=== PATIENT | female | born 1980 | race Caucasian/White ===

== ENCOUNTER 2016-10-04 14:12 | Emergency (ER) | payer OTHER ==
[~2016-10-04] VITALS: Ht 170.2 cm; Wt 82.8 kg
[~2016-10-04 14:12] MED LIST: AUGMENTIN875 MG PO; Atarax,Vistaril PO; BACTRIM,SEPT1 TABLE1 PO; BUPROPION XL150 MG PO; BUSPAR10 MG PO; BUSPAR15 MG PO; CALAN40 MG PO; CALAN80 MG PO; CALCITRIOL0.25 MCG PO; CEFTIN250 MG PO; CEFTIN500 MG PO; CEPHALEXIN500 MG PO; CRAN-MAX500 MG PO; DELTASONE5 MG PO; DILAUDID2 MG PO; Desyrel PO; EFFEXOR XR150 MG PO; EFFEXOR100 MG PO; EPOGEN,PRO20000 UNIT IV; Effexor XR PO; FOLIC ACID1 MG PO; Flagyl PO; Flonase BOTH NARES; IRON GLUCONATE; IRON325 MG PO; KEFLEX500 MG PO; LIPITOR40 MG PO; LO-DOSE ASPIRIN81 M1 PO; LOPRESSOR12.5 MG PO; LOPRESSOR25 MG PO; Levaquin PO; Lopressor PO; MIRENA52 MG IY; MULTIPLE VITAM1 EACH PO; MULTIVITAMIN1 EAC1 PO; MYCELEX10 MG PO; MYFORTIC PO; MYFORTIC180 MG PO; MYFORTIC360 MG PO; NABI650T PO; Neurontin PO; ONDANSETRON HCL4 MG PO; PERCOCET 5/31 TABLET PO; PREDNISONE5 M2 PO; PREDNISONE5 MG PO; PROGRAF1 MG PO; PROTONIX40 MG PO; PriLOSEC PO; Prograf PO; REGLAN5 MG PO; SODIUM BICARB; Sodium Bicarbonate PO; TRAMADOL HCL50 MG PO; Ultram PO; VANCOMYCIN HCL125 MG PO; Vicodin,Norco 5/325 PO; WELLBUTRIN SR150 MG PO; Wellbutrin SR PO; XANAX0.25 MG PO; Xanax PO; ZOFRAN ODT4 MG PO; ZOFRAN4 MG PO; ZOLOFT100 MG PO; ZOLOFT50 MG PO; predniSONE PO
[2016-10-04 15:05] LABS: ADD MIUA? YES; BILIRUBIN NEGATIVE; BLOOD SMALL; COLOR YELLOW ((YELLOW)); GLUCOSE (STRIP) NEGATIVE; KETONES 5; LEUKOCYTES TRACE; NITRITE NEGATIVE; PROTEIN (STRIP) NEGATIVE; SPECIFIC GRAVITY 1.015 (1.000-1.030); UROBILINOGEN 0.2 MG/DL (0.2-1.0)
[2016-10-04 15:10] LABS: HEMATOCRIT 38.6 % (36.0-46.0); MCH 28.7 PG (29.0-34.0); MCHC 32.1 G/DL (30.0-36.0); MCV 89.4 FL (83-99); MEAN PLAT.VOLUME 9.9 uM^3 (9.5-12.4); PLATELET COUNT 198 K/uL (156-360); RBC DIS.WIDTH-CV 13.3 % (11.8-14.6); RBC DIS.WIDTH-SD 43.7 % (39-53); RED BLOOD COUNT 4.32 M/uL (3.80-5.20); WHITE BLOOD COUNT 11.9 K/uL (4.1-10.2)
[2016-10-04 15:17] LABS: BACTERIA NONE SEEN /HPF; EPITHELIAL CELLS 1+ /HPF; MUCUS NONE SEEN /LPF; RED BLOOD CELLS NONE SEEN /HPF (0-5); UCUL ADDED? NO; WHITE BLOOD CELLS NONE SEEN /HPF (0-5)
[2016-10-04 15:18] LABS: CHLORIDE 110 mEq/L (99-109); POTASSIUM 4.4 mEq/L (3.7-5.4); SODIUM 139 mEq/L (136-147)
[2016-10-04 15:20] LABS: GLUCOSE 98 mg/dL (70-99)
[2016-10-04 15:21] LABS: ANION GAP 10 MEQ/L (2-14)
[2016-10-04 15:22] LABS: TOTAL BILIRUBIN 0.6 mg/dL (0.0-1.0)
[2016-10-04 15:23] LABS: ALKALINE PHOSPHATASE 65 IU/L (3-129)
[2016-10-04 15:24] LABS: GFR ESTIMATE (CALCULATED) 34 mL/min/
[2016-10-04 15:25] LABS: UREA NITROGEN (BUN) 25 mg/dL (9-23)
[2016-10-04] MEDS ORDERED: LORTAB 5-325 M1 EACH PO (19:41)
[2016-10-04] MEDS ORDERED: KEFLEX500 MG PO (19:41)
[2016-10-04] MEDS ORDERED: ZOFRAN ODT4 MG PO (19:41)
[2016-10-04 19:52] VITALS: BP 133/70
[2016-10-11] MEDS ORDERED: BUSPAR10 MG PO (15:25)
[2016-10-11] MEDS ORDERED: MULTIPLE VITAM1 EACH PO (15:26)
[2016-10-11] MEDS ORDERED: ROCALTROL0.25 MCG PO (15:26)
[2016-10-11] MEDS ORDERED: ZANTAC300 MG PO (15:27)
[2016-10-11] MEDS ORDERED: PROGRAF1 MG PO ×2 (15:27)
[2016-10-11] MEDS ORDERED: MYFORTIC PO (15:29)
[2016-10-11] MEDS ORDERED: KEFLEX500 MG PO (15:30)
== END 2016-10-04 19:53 | disposition home or self-care (01) ==
LOC: EME 14:12
PROVIDERS: Nurse Practitioner Family
DX: N12 Tubulo-interstitial nephritis, not specified as acute or chronic (principal); Z94.0 Kidney transplant status; Z87.440 Personal history of urinary (tract) infections; K21.9 Gastro-esophageal reflux disease without esophagitis; I10 Essential (primary) hypertension; Z87.891 Personal history of nicotine dependence
CPT/HCPCS: 74176; 80053; 81003; 83605; 85027; 87086; 99281; 99283; J0696; J2405; J3010; J7030; J7050

== ENCOUNTER 2016-10-13 08:52 | Inpatient (IN) | payer OTHER ==
[~2016-10-13] VITALS: Ht 171.4 cm; Wt 88.7 kg
[~2016-10-13 08:52] MED LIST changes: +LORTAB 5-325 M1 EACH PO; +ROCALTROL0.25 MCG PO; +ZANTAC300 MG PO
[2016-10-13 09:26] VITALS: BP 129/79
[2016-10-13 13:11] VITALS: BP 134/72
[2016-10-13 16:10] VITALS: BP 136/76
[2016-10-13 17:04] LABS: HEMATOCRIT 35.8 % (36.0-46.0); MCH 28.5 PG (29.0-34.0); MEAN PLAT.VOLUME 10.2 uM^3 (9.5-12.4); PLATELET COUNT 345 K/uL (156-360); RBC DIS.WIDTH-CV 13.7 % (11.8-14.6); RBC DIS.WIDTH-SD 46.5 % (39-53); RED BLOOD COUNT 3.89 M/uL (3.80-5.20)
[2016-10-13 17:05] LABS: WHITE BLOOD COUNT 14.3 K/uL (4.1-10.2)
[2016-10-13 17:06] VITALS: BP 150/90
[2016-10-13 17:15] LABS: ANION GAP 6 MEQ/L (2-14); CHLORIDE 111 MEQ/L (99-109); GFR ESTIMATE (CALCULATED) 27 mL/min/; POTASSIUM 4.8 MEQ/L (3.7-5.4); SAMPLE HEMOLYSIS CHECK 0; SAMPLE ICTERIC CHECK 0; SAMPLE LIPEMIA CHECK 0; SODIUM 135 MEQ/L (136-147); UREA NITROGEN (BUN) 27 mg/dL (9-23)
[2016-10-13 17:17] LABS: GLUCOSE 204 mg/dL (70-99)
[2016-10-13 18:30] VITALS: BP 117/73
[2016-10-13 19:01] LABS: HEMATOCRIT 30.4 % (36.0-46.0); MCV 91.6 FL (83-99)
[2016-10-13 20:24] VITALS: BP 138/74
[2016-10-13 21:10] LABS: HEMATOCRIT 28.9 % (36.0-46.0); MCV 95.1 FL (83-99)
[2016-10-14] VITALS (13 sets, daily range): BP systolic 122–145; BP diastolic 67–83
[2016-10-14 06:27] LABS: HEMATOCRIT 23.6 % (36.0-46.0); MCH 29.1 PG (29.0-34.0); MCHC 30.9 G/DL (30.0-36.0); MEAN PLAT.VOLUME 10.2 uM^3 (9.5-12.4); PLATELET COUNT 247 K/uL (156-360); RBC DIS.WIDTH-CV 13.5 % (11.8-14.6); RBC DIS.WIDTH-SD 46.7 % (39-53); WHITE BLOOD COUNT 10.7 K/uL (4.1-10.2)
[2016-10-14 06:38] LABS: RED BLOOD COUNT 2.51 M/uL (3.80-5.20)
[2016-10-14 06:54] LABS: ANION GAP 4 MEQ/L (2-14); CHLORIDE 108 MEQ/L (99-109); GFR ESTIMATE (CALCULATED) 26 mL/min/; GLUCOSE 140 mg/dL (70-99); POTASSIUM 4.6 MEQ/L (3.7-5.4); SAMPLE HEMOLYSIS CHECK 0; SAMPLE ICTERIC CHECK 0; SAMPLE LIPEMIA CHECK 0; SODIUM 134 MEQ/L (136-147); UREA NITROGEN (BUN) 26 mg/dL (9-23)
[2016-10-14 11:57] LABS: HEMATOCRIT 30.4 % (36.0-46.0); MCH 29.4 PG (29.0-34.0); MCHC 33.2 G/DL (30.0-36.0); MCV 88.6 FL (83-99); MEAN PLAT.VOLUME 9.9 uM^3 (9.5-12.4); PLATELET COUNT 182 K/uL (156-360); RBC DIS.WIDTH-SD 45.3 % (39-53); RED BLOOD COUNT 3.43 M/uL (3.80-5.20); WHITE BLOOD COUNT 18.4 K/uL (4.1-10.2)
[2016-10-14 12:05] LABS: CHLORIDE 110 mEq/L (99-109); POTASSIUM 4.7 mEq/L (3.7-5.4); SODIUM 134 mEq/L (136-147)
[2016-10-14 12:06] LABS: GLUCOSE 153 mg/dL (70-99); INTER. NORMALIZED RATIO 1.2; PROTHROMBIN TIME 11.9 (9.2-11.2); PTT 23.3 (25-32)
[2016-10-14 12:08] LABS: ANION GAP 9 MEQ/L (2-14)
[2016-10-14 12:10] LABS: GFR ESTIMATE (CALCULATED) 28 mL/min/
[2016-10-14 12:11] LABS: UREA NITROGEN (BUN) 22 mg/dL (9-23)
[2016-10-14 15:26] LABS: METH RESISTANT S AUREUS PCR NEGATIVE (NEGATIVE)
[2016-10-14 15:30] LABS: PROBE CHECK PASS; SPECIMEN PROCESSING CONTROL PASS
[2016-10-14 19:21] LABS: EOSINOPHIL (%) 0 % (0-5); HEMATOCRIT 26.9 % (36.0-46.0); IMMATURE GRANULOCYTE (%) 1.5 % (0.0-0.7); IMMATURE GRANULOCYTE COUNT 0.2 K/uL; LYMPHOCYTE COUNT 0.7 K/uL (1.0-2.8); MCH 28.8 PG (29.0-34.0); MCHC 33.1 G/DL (30.0-36.0); MCV 87.1 FL (83-99); MEAN PLAT.VOLUME 10.3 uM^3 (9.5-12.4); MONOCYTE (%) 6.7 % (3-12); MONOCYTE COUNT 0.8 K/uL (0-0.8); NEUTROPHIL (%) 85.6 % (45-76); PLATELET COUNT 153 K/uL (156-360); RBC DIS.WIDTH-CV 14.6 % (11.8-14.6); RBC DIS.WIDTH-SD 46.6 % (39-53); RED BLOOD COUNT 3.09 M/uL (3.80-5.20)
[2016-10-14 19:22] LABS: WHITE BLOOD COUNT 11.7 K/uL (4.1-10.2)
[2016-10-14 19:29] LABS: CHLORIDE 109 mEq/L (99-109); SODIUM 136 mEq/L (136-147)
[2016-10-14 19:30] LABS: GLUCOSE 155 mg/dL (70-99)
[2016-10-14 19:32] LABS: ANION GAP 11 MEQ/L (2-14)
[2016-10-14 19:34] LABS: GFR ESTIMATE (CALCULATED) 26 mL/min/
[2016-10-14 19:35] LABS: UREA NITROGEN (BUN) 22 mg/dL (9-23)
[2016-10-15] VITALS (12 sets, daily range): BP systolic 122–150; BP diastolic 65–94
[2016-10-15 01:47] LABS: HEMATOCRIT 27.7 % (36.0-46.0); MCH 29.1 PG (29.0-34.0); MCHC 33.2 G/DL (30.0-36.0); MCV 87.7 FL (83-99); PLATELET COUNT 145 K/uL (156-360); RBC DIS.WIDTH-CV 14.7 % (11.8-14.6); RBC DIS.WIDTH-SD 47.8 % (39-53); RED BLOOD COUNT 3.16 M/uL (3.80-5.20); WHITE BLOOD COUNT 10.3 K/uL (4.1-10.2)
[2016-10-15 01:57] LABS: CHLORIDE 109 mEq/L (99-109); POTASSIUM 4.3 mEq/L (3.7-5.4); SODIUM 136 mEq/L (136-147)
[2016-10-15 01:59] LABS: GLUCOSE 114 mg/dL (70-99)
[2016-10-15 02:01] LABS: ANION GAP 8 MEQ/L (2-14)
[2016-10-15 02:03] LABS: GFR ESTIMATE (CALCULATED) 26 mL/min/
[2016-10-15 02:04] LABS: UREA NITROGEN (BUN) 21 mg/dL (9-23)
[2016-10-15 02:09] LABS: TROP-I INTERPRETATION NEGATIVE; TROPONIN-I < 0.01 ng/mL (0.0-0.30)
[2016-10-15 07:46] LABS: HEMATOCRIT 27.8 % (36.0-46.0); MCHC 32.7 G/DL (30.0-36.0); MCV 88.5 FL (83-99); MEAN PLAT.VOLUME 10.1 uM^3 (9.5-12.4); PLATELET COUNT 150 K/uL (156-360); RBC DIS.WIDTH-CV 15.1 % (11.8-14.6); RBC DIS.WIDTH-SD 48.5 % (39-53); RED BLOOD COUNT 3.14 M/uL (3.80-5.20); WHITE BLOOD COUNT 8.8 K/uL (4.1-10.2)
[2016-10-15 08:01] LABS: INTER. NORMALIZED RATIO 1.2; PROTHROMBIN TIME 11.8 (9.2-11.2); PTT 27.8 (25-32)
[2016-10-15 08:15] LABS: ANION GAP 5 MEQ/L (2-14); CHLORIDE 108 MEQ/L (99-109); GFR ESTIMATE (CALCULATED) 27 mL/min/; GLUCOSE 103 mg/dL (70-99); POTASSIUM 4.1 MEQ/L (3.7-5.4); SAMPLE HEMOLYSIS CHECK 0; SAMPLE ICTERIC CHECK 0; SAMPLE LIPEMIA CHECK 0; SODIUM 135 MEQ/L (136-147); UREA NITROGEN (BUN) 19 mg/dL (9-23)
[2016-10-15 17:45] LABS: CHLORIDE 111 mEq/L (99-109); POTASSIUM 4.8 mEq/L (3.7-5.4); SODIUM 136 mEq/L (136-147)
[2016-10-15 17:46] LABS: GLUCOSE 106 mg/dL (70-99)
[2016-10-15 17:48] LABS: ANION GAP 10 MEQ/L (2-14)
[2016-10-15 17:50] LABS: GFR ESTIMATE (CALCULATED) 27 mL/min/
[2016-10-15 17:51] LABS: UREA NITROGEN (BUN) 18 mg/dL (9-23)
[2016-10-16 03:44] VITALS: BP 163/88
[2016-10-16 06:50] VITALS: BP 134/67
[2016-10-16 07:21] LABS: EOSINOPHIL (%) 1.5 % (0-5); EOSINOPHIL COUNT 0.1 K/uL (0-0.3); HEMATOCRIT 24.3 % (36.0-46.0); IMMATURE GRANULOCYTE (%) 0.6 % (0.0-0.7); IMMATURE GRANULOCYTE COUNT 0.1 K/uL; INSTRUMENT ABS NEUTROPHIL CT 5.6 K/uL; LYMPHOCYTE COUNT 1.1 K/uL (1.0-2.8); MCH 29.7 PG (29.0-34.0); MCHC 33.7 G/DL (30.0-36.0); MEAN PLAT.VOLUME 10.8 uM^3 (9.5-12.4); MONOCYTE (%) 12.9 % (3-12); NEUTROPHIL (%) 71.4 % (45-76); NEUTROPHIL COUNT 5.6 K/uL (1.8-6.4); PLATELET COUNT 143 K/uL (156-360); RBC DIS.WIDTH-CV 14.7 % (11.8-14.6); RBC DIS.WIDTH-SD 47.2 % (39-53); RED BLOOD COUNT 2.76 M/uL (3.80-5.20); WHITE BLOOD COUNT 7.8 K/uL (4.1-10.2)
[2016-10-16 07:39] LABS: ANION GAP 8 MEQ/L (2-14); CHLORIDE 111 MEQ/L (99-109); GFR ESTIMATE (CALCULATED) 28 mL/min/; GLUCOSE 84 mg/dL (70-99); POTASSIUM 4.3 MEQ/L (3.7-5.4); SAMPLE HEMOLYSIS CHECK 0; SAMPLE ICTERIC CHECK 0; SAMPLE LIPEMIA CHECK 0; SODIUM 140 MEQ/L (136-147); UREA NITROGEN (BUN) 17 mg/dL (9-23)
[2016-10-16 11:50] VITALS: BP 125/68
== END 2016-10-16 14:05 | disposition home or self-care (01) | DRG 742 ==
LOC: SDC → 2SOUTH 11:30 → 4WEST 11:30 → 2EAST 11:30 → SDC 12:29 → 2EAST 13:05 → SDC 16:05 → 4WEST 10-14 13:48 → 2EAST 10-14 16:37 → 4WEST 10-15 09:16 → 2EAST 10-15 11:46
PROVIDERS: Internal Medicine; Internal Medicine Pulmonary Disease; Obstetrics & Gynecology Gynecologic Oncology; Psychiatry & Neurology Neurology
PROC: 0UT97ZZ Resection of Uterus, Via Natural or Artificial Opening (ICD-10-PCS; principal; 2016-10-13)
PROC: 0UTC7ZZ Resection of Cervix, Via Natural or Artificial Opening (ICD-10-PCS; 2016-10-13)
PROC: 0W3R7ZZ Control Bleeding in Genitourinary Tract, Via Natural or Artificial Opening (ICD-10-PCS; 2016-10-14)
DX: R87.613 High grade squamous intraepithelial lesion on cytologic smear of cervix (HGSIL) (principal); Z94.0 Kidney transplant status; N81.4 Uterovaginal prolapse, unspecified; N25.81 Secondary hyperparathyroidism of renal origin; N99.821 Postprocedural hemorrhage of a genitourinary system organ or structure following other procedure; N93.8 Other specified abnormal uterine and vaginal bleeding; N18.3 Chronic kidney disease, stage 3 (moderate); I10 Essential (primary) hypertension; F41.9 Anxiety disorder, unspecified; F32.9 Major depressive disorder, single episode, unspecified; R10.9 Unspecified abdominal pain; D64.9 Anemia, unspecified; M10.9 Gout, unspecified; K21.9 Gastro-esophageal reflux disease without esophagitis; D62 Acute posthemorrhagic anemia; N87.9 Dysplasia of cervix uteri, unspecified; N94.6 Dysmenorrhea, unspecified; Z88.6 Allergy status to analgesic agent; Z88.8 Allergy status to other drugs, medicaments and biological substances; Z87.891 Personal history of nicotine dependence; Z79.82 Long term (current) use of aspirin; Z80.3 Family history of malignant neoplasm of breast
CPT/HCPCS: 36415; 71010; 78582; 80048; 80048 91; 80053; 80069; 80197 90; 81003; 83735; 84484; 84550; 84702 GA; 85014; 85018; 85025; 85025 91; 85027; 85610; 85610 GA; 85730; 85730 GA; 86900; 86901; 86920; 86999; 87641; 88307; 88342 TC; 93005; A9539; A9540; G0378; J0131; J0171; J0330; J0690; J1100; J1170; J1200; J1644; J2250; J2405; J2710; J2765; J3010; J7507; J7512; J7518; P9016; P9017; P9045

== ENCOUNTER 2017-09-13 19:37 | Inpatient (IN) | payer OTHER ==
[~2017-09-13] VITALS: Ht 172.7 cm; Wt 80.9 kg
[2017-09-13 20:09] LABS: HEMOGLOBIN 11.2 G/DL (11.9-15.5); MCH 29.6 PG (29.0-34.0); MCHC 32.9 G/DL (30.0-36.0); MCV 89.9 FL (83-99); PLATELET COUNT 214 K/uL (156-360); RBC DIS.WIDTH-SD 46.2 % (39-53); RED BLOOD COUNT 3.78 M/uL (3.80-5.20); WHITE BLOOD COUNT 8.9 K/uL (4.1-10.2)
[2017-09-13 20:24] LABS: ALBUMIN 4.4 g/dL (3.2-4.8); CHLORIDE 109 mEq/L (99-109); POTASSIUM 4.6 mEq/L (3.7-5.4); SODIUM 138 mEq/L (136-147)
[2017-09-13 20:27] LABS: GLUCOSE 84 mg/dL (70-99); TOTAL PROTEIN 7.8 g/dL (6.4-8.3)
[2017-09-13 20:29] LABS: TOTAL BILIRUBIN 0.2 mg/dL (0.0-1.0)
[2017-09-13 20:30] LABS: ALKALINE PHOSPHATASE 64 IU/L (3-129); CREATININE 3.9 mg/dL (0.6-1.3); GFR ESTIMATE (CALCULATED) 14 mL/min/
[2017-09-13 20:31] LABS: UREA NITROGEN (BUN) 40 mg/dL (9-23)
[2017-09-13 20:32] LABS: AST (GOT) 19 IU/L (2-34)
[2017-09-13 20:33] LABS: ALT (GPT) 13 IU/L (3-49)
[2017-09-13 20:39] LABS: QUANTITATIVE HCG < 4.0 MIU/ML
[2017-09-13 23:20] LABS: APPEARANCE CLEAR ((CLEAR)); BILIRUBIN NEGATIVE; BLOOD NEGATIVE; COLOR YELLOW ((YELLOW)); GLUCOSE (STRIP) NEGATIVE; KETONES NEGATIVE; LEUKOCYTES NEGATIVE; NITRITE NEGATIVE; PROTEIN (STRIP) NEGATIVE; SPECIFIC GRAVITY 1.011 (1.000-1.030); UCUL ADDED? NO; UROBILINOGEN 0.2 MG/DL (0.2-1.0)
[2017-09-14 07:23] VITALS: BP 131/82
[2017-09-14] MEDS ORDERED: BUSPAR10 MG PO (11:42)
[2017-09-14 12:19] LABS: CHLORIDE 114 MEQ/L (99-109); GFR ESTIMATE (CALCULATED) 17 mL/min/; GLUCOSE 79 mg/dL (70-99); POTASSIUM 5.3 MEQ/L (3.7-5.4); SODIUM 138 MEQ/L (136-147); UREA NITROGEN (BUN) 33 mg/dL (9-23)
[2017-09-14 12:20] LABS: CREATININE 3.2 MG/DL (0.6-1.3)
[2017-09-14 13:24] VITALS: BP 133/73
[2017-09-14 16:39] VITALS: BP 143/86
[2017-09-14 18:11] LABS: C DIFF TOXIN POSITIVE (NEGATIVE)
[2017-09-14 20:20] VITALS: BP 126/59
[2017-09-15 00:44] VITALS: BP 117/57
[2017-09-15 04:52] LABS: HEMATOCRIT 31.7 % (36.0-46.0); HEMOGLOBIN 10.3 G/DL (11.9-15.5); MCH 29.7 PG (29.0-34.0); MCHC 32.5 G/DL (30.0-36.0); MCV 91.4 FL (83-99); PLATELET COUNT 199 K/uL (156-360); RBC DIS.WIDTH-CV 13.9 % (11.8-14.6); RBC DIS.WIDTH-SD 46.6 % (39-53); RED BLOOD COUNT 3.47 M/uL (3.80-5.20); WHITE BLOOD COUNT 5.5 K/uL (4.1-10.2)
[2017-09-15 04:56] VITALS: BP 119/58
[2017-09-15 05:10] LABS: ALBUMIN 3.4 g/dL (3.2-4.8); CHLORIDE 116 mEq/L (99-109); POTASSIUM 4.5 mEq/L (3.7-5.4); SODIUM 138 mEq/L (136-147)
[2017-09-15 05:12] LABS: GLUCOSE 98 mg/dL (70-99)
[2017-09-15 05:15] LABS: PHOSPHORUS 3.1 mg/dL (2.5-4.9)
[2017-09-15 05:16] LABS: CREATININE 2.8 mg/dL (0.6-1.3); GFR ESTIMATE (CALCULATED) 20 mL/min/
[2017-09-15 05:17] LABS: UREA NITROGEN (BUN) 29 mg/dL (9-23)
[2017-09-15 06:36] LABS: IRON 122 MCG/DL (35-150); TRANSFERRIN (TIBC) 174.4 mg/dL (215-380); TRANSFERRIN SATUR. 70 % (20-55)
[2017-09-15 08:09] VITALS: BP 123/66
[2017-09-15 08:18] LABS: INTACT PARATHYROID HORMONE 74 pg/mL (10-69)
[2017-09-15 08:41] LABS: FOLIC ACID (FOLATE) 11.4 NG/ML (5.0-22.0)
[2017-09-15 11:58] VITALS: BP 133/83
[2017-09-15 15:47] VITALS: BP 136/78
[2017-09-15 20:06] VITALS: BP 151/87
[2017-09-16 00:49] VITALS: BP 124/77
[2017-09-16 06:13] LABS: ALBUMIN 3.4 G/DL (3.2-4.8); CHLORIDE 108 MEQ/L (99-109); CREATININE 2.4 MG/DL (0.6-1.3); GFR ESTIMATE (CALCULATED) 24 mL/min/; GLUCOSE 75 mg/dL (70-99); PHOSPHORUS 3.3 mg/dL (2.5-4.9); POTASSIUM 4.6 MEQ/L (3.7-5.4); SODIUM 135 MEQ/L (136-147); UREA NITROGEN (BUN) 25 mg/dL (9-23)
[2017-09-16 09:08] VITALS: BP 111/58
[2017-09-16 12:03] VITALS: BP 116/64
[2017-09-16 15:36] VITALS: BP 109/56
[2017-09-16 20:00] VITALS: BP 135/89
[2017-09-17] VITALS: BP 138/84
[2017-09-17 05:11] LABS: HEMATOCRIT 30.2 % (36.0-46.0); HEMOGLOBIN 9.8 G/DL (11.9-15.5); MCH 28.7 PG (29.0-34.0); MCHC 32.5 G/DL (30.0-36.0); MCV 88.6 FL (83-99); PLATELET COUNT 174 K/uL (156-360); RBC DIS.WIDTH-CV 13.2 % (11.8-14.6); RBC DIS.WIDTH-SD 43.6 % (39-53); RED BLOOD COUNT 3.41 M/uL (3.80-5.20); WHITE BLOOD COUNT 7.1 K/uL (4.1-10.2)
[2017-09-17 05:39] LABS: ALBUMIN 3.3 G/DL (3.2-4.8); CHLORIDE 106 MEQ/L (99-109); CREATININE 2.3 MG/DL (0.6-1.3); GFR ESTIMATE (CALCULATED) 26 mL/min/; GLUCOSE 70 mg/dL (70-99); POTASSIUM 4.4 MEQ/L (3.7-5.4); SODIUM 134 MEQ/L (136-147); UREA NITROGEN (BUN) 23 mg/dL (9-23)
[2017-09-17 05:40] LABS: CHLORIDE 106 MEQ/L (99-109); CREATININE 2.3 MG/DL (0.6-1.3); GFR ESTIMATE (CALCULATED) 26 mL/min/; GLUCOSE 70 mg/dL (70-99); POTASSIUM 4.4 MEQ/L (3.7-5.4); SODIUM 134 MEQ/L (136-147); UREA NITROGEN (BUN) 23 mg/dL (9-23)
[2017-09-17] MEDS ORDERED: PREDNISONE5 MG PO (08:44)
[2017-09-17] MEDS ORDERED: VANCOMYCIN HCL125 MG PO (08:48)
[2017-09-17] MEDS ORDERED: REGLAN10 MG PO (08:49)
[2017-09-17 09:00] VITALS: BP 148/90
[2017-09-17 11:46] VITALS: BP 133/83
== END 2017-09-17 12:02 | disposition home or self-care (01) | DRG 372 ==
LOC: EME 19:37 → EDOF 09-14 02:58 → ENRESERV 09-14 03:00 → 4SOUTH 09-14 04:25
PROVIDERS: Family Medicine; Internal Medicine Nephrology; Physician Assistant
DX: A04.72 Enterocolitis due to Clostridium difficile, not specified as recurrent (principal); N17.9 Acute kidney failure, unspecified; E87.2 Acidosis; T86.12 Kidney transplant failure; Y83.0 Surgical operation with transplant of whole organ as the cause of abnormal reaction of the patient, or of later complication, without mention of misadventure at the time of the procedure; N12 Tubulo-interstitial nephritis, not specified as acute or chronic; B96.20 Unspecified Escherichia coli [E. coli] as the cause of diseases classified elsewhere; Z16.23 Resistance to quinolones and fluoroquinolones; T37.0X5A Adverse effect of sulfonamides, initial encounter; E86.0 Dehydration; N25.81 Secondary hyperparathyroidism of renal origin; I12.9 Hypertensive chronic kidney disease with stage 1 through stage 4 chronic kidney disease, or unspecified chronic kidney disease; N18.9 Chronic kidney disease, unspecified; D63.1 Anemia in chronic kidney disease; K21.9 Gastro-esophageal reflux disease without esophagitis; F32.9 Major depressive disorder, single episode, unspecified; F41.9 Anxiety disorder, unspecified; F12.90 Cannabis use, unspecified, uncomplicated; Z79.82 Long term (current) use of aspirin; Z87.891 Personal history of nicotine dependence; Z80.8 Family history of malignant neoplasm of other organs or systems; Z82.3 Family history of stroke; Z83.3 Family history of diabetes mellitus; Z98.84 Bariatric surgery status; Z87.440 Personal history of urinary (tract) infections
CPT/HCPCS: 74176; 76776; 80048; 80048 91; 80053; 80069; 80197 90; 81003; 82306; 82607; 82746; 83540; 83970; 84466; 84702; 85027; 87081; 87493; 87641; 99281; 99285; J0692; J0696; J2405; J2765; J3010; J7030; J7070; J7507; J7512; J7518